=== PATIENT | male | born 1965 | race Caucasian/White ===

== ENCOUNTER → 2018-01-30 10:24 | Outpatient (CLI) | payer MEDICARE, BC, SELFPAY ==
[2018-01-30 14:17] LABS: Basophils % 0.4 % (0.1-2.0); Eosinophils # 0.2 K/mm3 (0.0-0.4); Eosinophils % 3.4 % (0.1-12.0); Hematocrit 45.7 % (42.0-52.0); Hemoglobin 15.5 g/dL (14.1-18.0); Lymphocytes # 2.8 K/mm3 (0.7-4.5); Lymphocytes % 40.4 K/mm3 (10-50); Mean Corpuscular HGB Conc 33.8 g/dL (31.8-35.4); Mean Corpuscular Hemoglobin 29.9 pg (27.0-31.2); Mean Corpuscular Volume 88.4 fl (80-94); Monocytes # 0.5 K/mm3 (0.1-1.0); Monocytes % 7.1 % (1.7-9.3); Neutrophils # 3.3 K/mm3 (1.8-7.8); Neutrophils % 48.7 % (37.0-80.0); Platelet Count 223 K/mm3 (142-424); Red Blood Count 5.18 M/mm3 (4.60-6.20); Red Cell Distribution Width 12.9 % (11.5-17.5); White Blood Count 6.9 K/mm3 (4.8-10.8)
[2018-01-30 14:44] LABS: Hemoglobin A1C 5.6 % (0.0-7.0)
[2018-01-30 17:05] LABS: Alanine Aminotransferase 33 U/L (12-78); Albumin/Globulin Ratio 1.2 (1.1-1.8); Alkaline Phosphatase 58 U/L (46-116); Anion Gap 11.8 mEq/L (5-15); Aspartate Amino Transferase 16 U/L (15-37); Bilirubin,Total 0.5 mg/dL (0.2-1.0); Blood Urea Nitrogen 8 mg/dL (7-18); Calcium 9.3 mg/dL (8.5-10.1); Carbon Dioxide 27 mmol/L (21.0-32.0); Chloride 104 mmol/L (98-107); Chol/HDL Ratio 4.1 (1-3.5); Cholesterol 180 mg/dL (140-200); Estimated Glomerular Filt Rate 79 ml/min (>60); GFR (African American) 95 ML/MIN (>60); Globulin 3.3 gm/dl (1.3-3.2); Glucose 96 mg/dL (74-106); HDL Cholesterol 44 mg/dL (27-67); LDL Cholesterol 115 mg/dL (0-130); Potassium 3.8 mmoL/L (3.5-5.1); Prostate Specific Ag Screen 0.9 ng/mL (0.0-4.0); Sodium 139 mmol/L (136-145); Thyroid Stimulating Hormone 0.89 uIU/ml (0.358-3.740); Total Protein,Serum 7.3 gm/dL (6.4-8.2); Triglycerides 106 mg/dL (30-200); VLDL Cholesterol 21 mg/dL (0-40)
== END ==
PROVIDERS: Visit Provider Nurse Practitioner Family
DX: F41.9 Anxiety disorder, unspecified (principal); N52.9 Male erectile dysfunction, unspecified; G47.00 Insomnia, unspecified; Z12.5 Encounter for screening for malignant neoplasm of prostate; E78.5 Hyperlipidemia, unspecified; R06.02 Shortness of breath; Z79.899 Other long term (current) drug therapy
CPT/HCPCS: 36415; 80053; 80061; 83036; 84443; 85025; G0103

== ENCOUNTER → 2018-07-10 11:30 | Outpatient (CLI) | payer MEDICARE, BC, SELFPAY ==
[2018-07-10 11:37] LABS: Adenovirus,PCR Not Detected (NotDetected); Bordetella Pertussis Not Detected (NotDetected); Chlamydophila Pneumoniae, PCR Not Detected (NotDetected); Coronavirus 229E Not Detected (NotDetected); Coronavirus NL63 Not Detected (NotDetected); Coronavirus OC43 Not Detected (NotDetected); Coronovirus HKU1,PCR Not Detected (NotDetected); Human Metapneumovirus Not Detected (NotDetected); Influenza A, PCR Not Detected (NotDetected); Influenza AH1, 2009 Not Detected (NotDetected); Influenza AH1, PCR Not Detected (NotDetected); Influenza AH3,PCR Not Detected (NotDetected); Influenza B, PCR Not Detected (NotDetected); Mycoplasma Pneumoniae, PCR Not Detected (NotDetected); Parainfluenza 1, PCR Not Detected (NotDetected); Parainfluenza 2, PCR Not Detected (NotDetected); Parainfluenza 3, PCR Not Detected (NotDetected); Parainfluenza 4, PCR Not Detected (NotDetected); Respiratory Syncytial Virus Not Detected (NotDetected); Rhinovirus/Enterovirus Not Detected (NotDetected)
== END ==
PROVIDERS: PCP Nurse Practitioner Family; Visit Provider Nurse Practitioner Family
DX: R05 Cough (principal)
CPT/HCPCS: 87486; 87581; 87633; 87798

== ENCOUNTER 2020-03-19 17:42 | Emergency (ER) | payer MEDICARE, BC, SELFPAY ==
[2020-03-19 17:54] VITALS: BP 142/85; PULSE 89; RESP 16; TEMP 36.9; O2SAT 98; BMI 37.3
--- NOTE | 2020-03-19 18:00 | CT_ITS ---
PROCEDURE: CT HEAD/BRAIN WO CON CLINICAL INDICATION: HEADACHE Severe headache COMPARISON: CT CT ANGIO HEAD from 03/19/2020 TECHNIQUE: Axial images obtained. All CT scans at the facility use one or more dose reduction, viz: automated exposure control, ma/kV adjustment per patient size (including targeted exams where dose is matched to indication, i.e. head), or iterative reconstruction technique. FINDINGS: No midline shift, mass effect, intracranial hemorrhage, hydrocephalus, or extra-axial fluid collection is evident. The calvarium has an unremarkable appearance. No mastoid effusion. There is mild mucosal thickening of the left maxillary sinus. There is a subtle linear hyperdensity in the right parietal lobe anteriorly corresponding 2 developmental venous anomaly as seen on subsequent CT angiogram IMPRESSION: 1. No acute intracranial findings. 2. Developmental venous anomaly right parietal lobe. No associated acute intracranial hemorrhage Dictated by: Eriberto Mancini MD 03/20/2020 05:34 Eriberto Mancini MD in [facility] 03/20/2020 05:34
--- NOTE | 2020-03-19 18:02 | [facility].EDGENADL ---
ED Disposition Clinical Impression: Headache Qualifiers: Headache type: unspecified Headache chronicity pattern: acute headache Intractability: intractable Qualified Code(s): R51 - Headache Disposition: Home, Self-Care Condition on Discharge: Good Instructions: DI for Headache Additional Instructions: Stop taking ibuprofen. Fioricet for headache. Additional instructions for HEADACHE: See your physician as soon as possible for further evaluation. Call tomorrow to make appointment. Return immediately if worsening headache, vomiting, problems with vision or speech, fever, numbness or weakness of the extremities, neck pain or stiffness. Additional instructions for CONTROLLED SUBSTANCES: You have been prescribed a medication that is a controlled substance. Controlled substances include pain medications known as opiates and sedative nerve medications known as benzodiazepines. Tramadol, fioricet, and gabapentin are also controlled substances. Some common opiates include: Codeine (such as Tylenol #3) Hydrocodone (Vicodin, Lortab, Lorcet, [place]) Oxycodone (Percocet, Percodan, Oxycodone, Oxy IR) Some common benzodiazepines include: Diazepam (Valium) Lorazepam (Ativan) Alprazolam (Xanax) Clonazepam (Klonopin) Oxazepam (Serax) All of these controlled substances are highly addictive and frequently abused. Misuse can and frequently does lead to addiction as well as overdose and . Medication should be stored in a locked cabinet or other secure storage unit. Do not store the medication in a motor vehicle. Short term supplies, 3 days or less, are prescribed because of the highly addictive nature of the medication. Any of the controlled substance medication NOT taken should be disposed of properly and NOT SAVED. The recommended method of disposing of unused medications is: Place the medicines in a sealable plastic bag. If the medicine is a solid, crush it or add water to dissolve it. Add something undesirable (cat litter, coffee grounds, etc.) Dispose of sealed bag in household trash Do not flush or pour unused medicines down a sink or drain. Controlled substances should not be shared, given away or sold. Because of the addictive nature and frequent abuse, these medications are sometimes stolen. These medications should be kept in a safe place where they cannot be stolen. Do not keep them in your car or purse. Lost or stolen prescriptions for controlled substances WILL NOT BE REFILLED in this emergency department, regardless of whether a police report was filed. Prescriptions: Butalb/Acetaminophen/Caffeine [Fioricet 50-300-40 mg Capsule] 1 each PO Q4HP PRN #10 cap PRN Reason: Headache Referrals: Jeanna Hernandez [Referring] - - Critical Care Critical Care Time: No Attestation: On 03/19/20, the high probability of a clinically significant, sudden or life threatening deterioration of the following system(s) required my full and direct attention, intervention and personal management. The time I documented below is in addition to time spent performing reported procedures but includes the following listed in this critical care notation. Medical Decision Making - Stew Inquiry Pt receiving controlled substance: Yes Stew was queried for this patient: Yes Reference #:: [id number] Risks and benefits of using a controlled substance: were discussed with pt by me Comment: 0 rxs. Vital Signs: 03/19/20 17:54 03/19/20 19:37 03/19/20 19:38 Temperature 98.5 F 98.5 F Temperature Source Oral Oral Pulse Rate 86 Pulse Rate [Radial] 89 78 Respiratory Rate 16 18 16 Blood Pressure 151/92 H Blood Pressure [Right Arm] 142/85 H 148/84 H Blood Pressure Mean [Right Arm] 104 105 Blood Pressure Source Automatic Cuff Blood Pressure Position Sitting Blood Pressure Position [Right Arm] Sitting 02 Sat by Pulse Oximetry 98 94 L Oxygen Delivery Method Room Air Room Air Room Air - Lab Data Lab Resul
[2020-03-19 18:11] LABS: Appearance,Urine CLEAR (Clear); Bilirubin,Urine Negative (Negative); Blood, Urine Negative (Negative); Color,Urine YELLOW (Yellow); Glucose,Urine (UA) Negative (Negative); Ketones,Urine Negative (Negative); Leukocyte Esterase,Urine Negative (Negative); Nitrate,Urine Negative (Negative); PH,Urine 6.5 (5.0-8.5); Protein,Urine Negative (Negative); Urobilinogen,Urine 0.2 EU/dl (0.2)
[2020-03-19 18:12] LABS: Microscopic, Urine URINE MICROSCOPIC (MICROSCOPIC)
[2020-03-19 18:13] LABS: Basophils # 0.1 K/mm3 (0-0.2); Basophils % 0.6 % (0.1-2.0); Eosinophils # 0.3 K/mm3 (0.0-0.4); Eosinophils % 2.8 % (0.1-12.0); Hematocrit 45.4 % (42.0-52.0); Hemoglobin 16.4 g/dL (14.1-18.0); Lymphocytes # 3.1 K/mm3 (0.7-4.5); Mean Corpuscular HGB Conc 36.2 g/dL (31.8-35.4); Mean Corpuscular Hemoglobin 31.1 pg (27.0-31.2); Mean Corpuscular Volume 85.9 fl (80-94); Mean Platelet Volume 7.4 fl (7.4-10.4); Monocytes # 0.7 K/mm3 (0.1-1.0); Monocytes % 7.3 % (1.7-9.3); Neutrophils % 55.2 % (37.0-80.0); Platelet Count 245 K/mm3 (142-424); Red Blood Count 5.29 M/mm3 (4.60-6.20); Red Cell Distribution Width 13.2 % (11.5-17.5); White Blood Count 9.1 K/mm3 (4.8-10.8)
[2020-03-19 18:15] LABS: Chloride 102 mmol/L (98-107); Potassium 4.1 mmoL/L (3.5-5.1); Sodium 142 mmol/L (136-145)
[2020-03-19 18:18] LABS: Alanine Aminotransferase 32 U/L (12-78); Albumin Level 4.5 g/dl (3.5-5.0); Albumin/Globulin Ratio 1.4 (1.1-1.8); Alkaline Phosphatase 47 U/L (38-126); Anion Gap 14.1 mEq/L (5-15); Aspartate Amino Transferase 34 U/L (17-59); Bilirubin,Total 0.5 mg/dl (0.2-1.3); Blood Urea Nitrogen 13 mg/dl (9-20); Carbon Dioxide 30 mmol/L (22.0-30.0); Creatinine Clearance Estimated 100 mL/min (50-200); Estimated Glomerular Filt Rate 58 ml/min (>60); GFR (African American) 70 ML/MIN (>60); Globulin 3.3 g/dL (1.3-3.2); Total Protein,Serum 7.8 g/dl (6.3-8.2)
[2020-03-19 18:19] LABS: Calcium 10.5 mg/dl (8.4-10.2); Glucose 112 mg/dl (74-100)
[2020-03-19 18:21] LABS: RBC,Urine Occasional #/hpf (0-3)
--- NOTE | 2020-03-19 18:24 | CT_ITS ---
Procedure: CT ANGIO HEAD CLINICAL HISTORY: headache, fam hx of cerebral aneurysm Severe headache, COMPARISON: CT CT HEAD/BRAIN WO CON from 03/19/2020 TECHNIQUE: IV Contrast: 100ml Optiray 350 Axial images obtained with sagittal and coronal reformats. All CT scans at the facility use one or more dose reduction, viz: automated exposure control, ma/kV adjustment per patient size (including targeted exams where dose is matched to indication, i.e. head), or iterative reconstruction technique. FINDINGS: No aneurysm is evident. No obvious intracranial occlusion. Developmental venous anomaly is noted in the right anterior parietal region. No enhancing lesions. No midline shift or mass effect. IMPRESSION: Right parietal developmental venous anomaly otherwise negative CTA of the brain Dictated by: Eriberto Mancini MD 03/20/2020 06:51 Eriberto Mancini MD in [facility] 03/20/2020 06:51
--- NOTE | 2020-03-19 19:30 | PC.NURSE ---
pt back from CT
[2020-03-19 19:37] VITALS: BP 148/84; PULSE 78; RESP 18; O2SAT 94
[2020-03-19 19:38] VITALS: BP 151/92; PULSE 86; RESP 16; TEMP 36.9; O2SAT 95
== END 2020-03-19 20:09 | disposition home or self-care (01) ==
PROVIDERS: Emergency Provider Emergency Medicine; PCP Nurse Practitioner Family
DX: R51 Headache (principal); Z88.0 Allergy status to penicillin
CPT/HCPCS: 70450; 70496; 80053; 81001; 85025; 99283; Q9967

== ENCOUNTER 2022-03-27 01:39 | Emergency (ER) | payer MEDICARE, BC, SELFPAY ==
[2022-03-27 01:41] VITALS: BP 143/85; PULSE 80; RESP 20; TEMP 36.8; O2SAT 99; BMI 44.1
--- NOTE | 2022-03-27 01:51 | ECG_ITS ---
APPROVED REPORT Exam: Resting ECG HR:73 bpm ECG Measurements Heart Rate 73 AXES NV 172 P 42 QRSd 100 QRS 57 QT 373 T 46 QTc 399 Conclusion SINUS RHYTHM WITH OCCASIONAL VENTRICULAR PREMATURE COMPLEXES NONSPECIFIC T-WAVE ABNORMALITY BORDERLINE ECG UNCONFIRMED REPORT Electronically signed by : Ezequiel Lagos MD 03/31/2022 16:03:54
--- NOTE | 2022-03-27 02:01 | [facility].EDGENADL ---
Discharge Plan Disposition Patient Disposition: Home, Self-Care Condition: Good Prescriptions Prescriptions: No Action prednisone 20 MG tablet 20 mg PO BID admblyqsxm-sflproxcrknhz-hszf 1 EACH capsule 1 each PO Q4HP PRN (Reason: Headache) Qty: 10 0RF Referrals Follow up/Referrals: Jennifer Hernández APRN [Primary Care Provider] - See instructions Activity Restrictions/Add. Instructions Additional Instructions/Restrictions: At this time was felt you are safe to be discharged home. If new or worsening symptoms please do not hesitate to return the emergency department. 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 Onset was acute occurring approximately 3 days ago, patient feels the palpitations in his chest occurring continuously approximately 10 seconds apart. Patient denies chest pain, shortness of breath, lightheadedness, other acute complaints at this time. Due to his history of WPW he presents here for further evaluation. Related Data Home Medications Medication Instructions Recorded Confirmed prednisone 20 mg tablet 20 mg PO BID UNKNOWN 03/19/20 03/19/20 Previous Rx's Medication Instructions Recorded [id number]-xlgqnnfvofnkv-elfvbbot 1 each PO Q4HP PRN Headache #10 03/19/20 50 mg-300 mg-40 mg capsule caps Allergies Allergy/AdvReac Type Severity Reaction Status Date / Time Penicillins [PENICILLINS] Allergy Mild Unknown Verified 04/21/19 14:52 allergy reaction PFSH PFSH Social History Smoking Status: Current every day smoker second hand exposure: No alcohol intake: never current occupational status: other Travel in the last 8 weeks: None household members: none housing: other current occupational exposures/hazards: No caffeine: Yes ROS Obtained: Yes All systems reviewed & no additional complaints except as documented Physical Exam General General appearance: alert and in no apparent distress Head Head exam: atraumatic and normocephalic Eye Eye exam: Present PERRL and EOMI ENT ENT exam: Present mucous membranes moist Neck Neck exam: Present normal inspection Chest Chest inspection: Present normal inspection and symmetric chest wall rise Respiratory Respiratory exam: Present normal lung sounds bilaterally; Absent respiratory distress Cardiovascular Cardiovascular exam: Present regular rate and irregular rhythm Abdominal Exam Abdominal exam: Present soft; Absent tenderness Extremities Exam Extremities exam: Present normal inspection Neurological Exam Neurological exam: Present alert and oriented X3 Psychiatric Psychiatric exam: Present normal affect Skin Skin exam: Present warm and dry Medical Decision Making Stew Inquiry Pt receiving controlled substance: No Vital Signs: 03/27/22 01:41 Temperature 98.3 F Temperature Source Oral Pulse Rate [Right] 80 Respiratory Rate 20 Blood Pressure [Right Arm] 143/85 H Blood Pressure Mean [Right Arm] 104 Blood Pressure Source [Right Arm] Automatic Cuff 02 Sat by Pulse Oximetry 99 Oxygen Delivery Method Room Air Lab Data Lab Results 03/27/22 01:55: WBC 8.4, RBC 5.33, Hgb 16.1, Hct 47.2, MCV 88.6, MCH 30.3, MCHC 34.1, RDW 13.3, Plt Count 257, MPV 8.4, Neut % (Auto) 47.6, Lymph % (Auto) 40.2, Maury % (Auto) 7.5, Eos % (Auto) 2.8, Baso % (Auto) 1.9, Neut # (Auto) 4.0, Lymph # (Auto) 3.4, Maury # (Auto) 0.6, Eos # (Auto) 0.2, Baso # (Auto) 0.2 03/27/22 01:55: Sodium 138, Potassium 3.5, Chloride 9
[2022-03-27 02:05] LABS: Basophils # 0.2 K/mm3 (0-0.2); Basophils % 1.9 % (0.1-2.0); Eosinophils # 0.2 K/mm3 (0.0-0.4); Eosinophils % 2.8 % (0.1-12.0); Hematocrit 47.2 % (42.0-52.0); Hemoglobin 16.1 g/dL (14.1-18.0); Lymphocytes # 3.4 K/mm3 (0.7-4.5); Lymphocytes % 40.2 % (10-50); Mean Corpuscular HGB Conc 34.1 g/dL (31.8-35.4); Mean Corpuscular Hemoglobin 30.3 pg (27.0-31.2); Mean Corpuscular Volume 88.6 fl (80-94); Mean Platelet Volume 8.4 fl (7.4-10.4); Monocytes # 0.6 K/mm3 (0.1-1.0); Monocytes % 7.5 % (1.7-9.3); Neutrophils % 47.6 % (37.0-80.0); Platelet Count 257 K/mm3 (142-424); Red Blood Count 5.33 M/mm3 (4.60-6.20); Red Cell Distribution Width 13.3 % (11.5-17.5); White Blood Count 8.4 K/mm3 (4.8-10.8)
[2022-03-27 02:16] LABS: Alanine Aminotransferase 30 U/L (12-78); Albumin Level 4.5 g/dl (3.5-5.0); Albumin/Globulin Ratio 1.4 (1.1-1.8); Alkaline Phosphatase 65 U/L (38-126); Anion Gap 16.5 mEq/L (5-15); Aspartate Amino Transferase 32 U/L (17-59); Bilirubin,Total 0.4 mg/dl (0.2-1.3); Blood Urea Nitrogen 13 mg/dl (9-20); Calcium 9.5 mg/dl (8.4-10.2); Carbon Dioxide 26 mmol/L (22.0-30.0); Chloride 99 mmol/L (98-107); Estimated Glomerular Filt Rate 69 ml/min (>60); GFR (African American) 84 ML/MIN (>60); Globulin 3.3 g/dL (1.3-3.2); Glucose 99 mg/dl (74-100); Magnesium 1.9 mg/dl (1.6-2.3); Potassium 3.5 mmoL/L (3.5-5.1); Sodium 138 mmol/L (136-145); Total Protein,Serum 7.8 g/dl (6.3-8.2)
[2022-03-27 03:17] VITALS: BP 142/81; PULSE 79; RESP 16; TEMP 36.6; O2SAT 98
== END 2022-03-27 03:22 | disposition home or self-care (01) ==
PROVIDERS: Emergency Provider Emergency Medicine; PCP Nurse Practitioner
DX: I49.3 Ventricular premature depolarization (principal); Z72.0 Tobacco use
CPT/HCPCS: 80053; 83735; 85025; 93005; 99283